=== PATIENT | male | born 1985 | race Caucasian/White ===

== ENCOUNTER 2024-07-22 18:43 | Emergency (ER) | payer BC ==
[~2024-07-22] VITALS: Ht 154.9 cm; Wt 77.1 kg
[2024-07-22 19:22] LABS: BASOPHILS # (AUTO) 0.1 K/uL (0.0-0.2); BASOPHILS % (AUTO) 0.9 % (0.0-2.0); EOSINOPHILS # (AUTO) 0.5 K/uL (0.0-0.7); EOSINOPHILS % (AUTO) 6.4 % (0.0-6.0); HEMATOCRIT 42 % (39-51); HEMOGLOBIN 14.5 g/dL (13.5-17.5); LYMPHOCYTES # (AUTO) 0.9 K/uL (0.8-4.8); LYMPHOCYTES % (AUTO) 12.5 % (20.0-44.0); MEAN CORPUSCULAR HEMOGLOBIN 31 PG (26.0-33.0); MEAN CORPUSCULAR HGB CONC 34 g/dl (31.0-36.0); MEAN CORPUSCULAR VOLUME 89 fL (80-96); MONOCYTES # (AUTO) 0.6 K/uL (0.1-1.30); MONOCYTES % (AUTO) 7.5 % (2.0-12.0); NEUTROPHILS # (AUTO) 5.3 K/uL (1.8-8.9); NEUTROPHILS % (AUTO) 72.7 % (43.0-81.0); PLATELET COUNT (AUTO) 275 K/uL (150-450); RED BLOOD CELL COUNT(AUTO) 4.75 MIL/uL (4.5-6.0); WHITE BLOOD COUNT (AUTO) 7.3 K/uL (4.3-11.0)
[2024-07-22 19:30] LABS: CALCIUM, SERUM 8.6 mg/dL (8.5-10.1); CARBON DIOXIDE 28 mmol/L (21-32); CHLORIDE 106 mmol/L (98-107); GLUCOSE 89 mg/dL (74-106); POTASSIUM 3.9 mmol/L (3.5-5.1); SODIUM SERUM 138 mmol/L (136-145); UREA NITROGEN, BLOOD 12 mg/dL (7-18)
[2024-07-22 19:36] LABS: ALANINE AMINOTRANSFERASE 38 U/L (12-78); ALKALINE PHOSPHATASE 75 U/L (46-116); ASPARTATE AMINOTRANSFERASE 17 U/L (15-37); BILIRUBIN,DIRECT 0.2 mg/dL (0.0-0.2); BILIRUBIN,TOTAL 0.8 mg/dL (0.2-1.0); TOTAL PROTEIN, SERUM 7.1 g/dL (6.4-8.2)
[2024-07-22] MEDS: IV NS 0.9% 1,000 ML BAG IV ONE ×2 (19:36)
[2024-07-22 21:25] VITALS: BP 123/91; TEMP 98.3; O2SAT 99
== END 2024-07-22 21:25 | disposition home or self-care (01) ==
LOC: ER 18:48
DX: R55 Syncope and collapse (principal)
CPT/HCPCS: 99285; 96360; 71045; 93005 ×2; 85025; 80048; 80076; 36415; 84484 ×2; 83880; J7030

== ENCOUNTER 2024-12-30 17:42 | Emergency (ER) | payer BC ==
[~2024-12-30] VITALS: Ht 180.3 cm; Wt 79.4 kg
[2024-12-30 20:08] LABS: PLATELET COUNT (AUTO) 253 K/uL (150-450); RED BLOOD CELL COUNT(AUTO) 4.93 MIL/uL (4.5-6.0); RED CELL DISTRIBUTION WIDTH 12.5 % (11.5-15.0); WHITE BLOOD COUNT (AUTO) 7.2 K/uL (4.3-11.0)
[2024-12-30 20:17] LABS: CALCIUM, SERUM 9.0 mg/dL (8.5-10.1); CREATININE 0.9 mg/dL (0.6-1.3); SODIUM SERUM 141.0 mmol/L (136-145); UREA NITROGEN, BLOOD 12.0 mg/dL (7-18)
[2024-12-30 20:23] LABS: ASPARTATE AMINOTRANSFERASE 12.0 U/L (15-37); TOTAL PROTEIN, SERUM 6.8 g/dL (6.4-8.2)
[2024-12-30] MEDS ORDERED: ACETAMINOPHEN 325 MG TABLET PO ONE (20:30)
[2024-12-30] MEDS ORDERED: ACET325C7 PO (21:00)
[2024-12-30] MEDS ORDERED: IBUP-1957 PO (21:00)
[2024-12-30 21:14] VITALS: BP 115/69; TEMP 98.3; O2SAT 98
== END 2024-12-30 21:16 | disposition home or self-care (01) ==
LOC: ER 17:49
DX: K40.90 Unilateral inguinal hernia, without obstruction or gangrene, not specified as recurrent (principal); Z79.1 Long term (current) use of non-steroidal anti-inflammatories (NSAID)
CPT/HCPCS: 36415; 76870-TC; 80053-TC; 85025-TC